=== PATIENT | male | born 1965 | race American Indian/Alaskan Native ===

== ENCOUNTER 2017-05-05 12:43 | Emergency (ER) | payer OTHER ==
--- NOTE | 2017-05-05 13:31 | Emergency Department Report ---
Stated Complaint: HBP Time Seen by Provider: 05/05/17 13:27 - HPI History of Present Illness: [facility] and [facility] was high. 168/123 and 174/126. PT states he was given clonidine but on recheck his bp increased to 183/127 PT states he has htn and he is on Norvasc and lisinopril. PT states he ordered his medication but he did not get it. PT states that why he went to clinic. PT states he last took his bp medication 7 days. - ROS Review of Systems: + headache + blurry vision - chest pain - Exam Physical Exam: Pt looks well, non toxic no focal weakness noted in triage gcs 15 MSE screening note: Focused history and physical exam performed. Due to findings the following was ordered: labs, ct, ekg ED Disposition for MSE Condition: Stable
[2017-05-05 14:02] LABS: Basophils % (Auto) 0.6 % (0.0-1.8); Eosinophils % (Auto) 2.1 % (0.0-4.3); Hematocrit 43.6 % (35.5-45.6); Hemoglobin 14.6 gm/dl (11.8-15.2); Mean Corpuscular HGB Conc 33 % (32-34); Mean Corpuscular Volume 76 fl (84-94); Platelet Count 270 K/mm3 (140-440); Red Blood Count 5.73 M/mm3 (3.65-5.03); Red Cell Distribution Width 15.7 % (13.2-15.2); White Blood Count 7.8 K/mm3 (4.5-11.0)
[2017-05-05 14:15] LABS: Mean Corpuscular Hemoglobin 25 pg (28-32)
[2017-05-05 14:20] LABS: Anion Gap 18 mmol/L; BUN/Creatinine Ratio 13.63; Blood Urea Nitrogen 15 mg/dL (9-20); Calcium 8.9 mg/dL (8.4-10.2); Carbon Dioxide 26 mmol/L (22-30); Chloride 100.2 mmol/L (98-107); Glucose 117 mg/dL (75-100); Potassium 3.9 mmol/L (3.6-5.0); Sodium 140 mmol/L (137-145)
--- NOTE | 2017-05-05 15:13 | Cat Scan Report ---
CRANIAL CT SCAN: History: Hypertension, blurred vision. Serial contiguous axial images were obtained through the cranium. Intravenous contrast material was not administered. The ventricles are normal in size and appearance. There is no mass effect or midline shift. No areas of abnormally increased or decreased attenuation are seen. No mass lesion is seen. The mastoid air cells and visualized portions of the sinuses are normal. IMPRESSION: Cranial CT scan within normal limits.
[2017-05-05] MEDS ORDERED: CATAPRES PO ONE (22:07)
--- NOTE | 2017-05-05 22:12 | Emergency Department Report ---
ED General Adult HPI - General Chief complaint: High BP Stated complaint: HBP Time Seen by Provider: 05/05/17 13:27 Source: patient Mode of arrival: Ambulatory Limitations: No Limitations - History of Present Illness Initial comments: 51 years old male sent from his doctor office because of high blood pressure patient received clonidine to his doctor office. Complaining of headache denied any focal weakness or numbness or tingling sensation. No nausea no vomiting no fever. Patient patient is out of his blood pressure medication for a week or so [facility] and [facility] but it will take time to come back. -: Gradual Location: head Radiation: non-radiation Severity scale (0 -10): 8 Consistency: constant - Related Data Previous Rx's Medication Instructions Recorded Last Taken Type HYDROcodone/APAP 5-325 [Sanders 1 each PO Q6HR PRN #14 tablet 07/09/14 Unknown Rx 5/325] Lisinopril/Hydrochlorothiazide 1 tab PO QDAY #30 tablet 07/09/14 Unknown Rx [Zestoretic 20-25 mg] amLODIPine [Norvasc] 10 mg PO DAILY #30 tab 07/09/14 Unknown Rx Lisinopril [Zestril TAB] 20 mg PO QDAY #30 tablet 05/06/17 Unknown Rx amLODIPine [Norvasc] 10 mg PO DAILY #30 tab 05/06/17 Unknown Rx Allergies Allergy/AdvReac Type Severity Reaction Status Date / Time No Known Allergies Allergy Unverified 07/09/14 10:44 ED Review of Systems ROS: Stated complaint: HBP Other details as noted in HPI Comment: All other systems reviewed and negative Constitutional: denies: chills, fever ENT: denies: ear pain, dental pain Respiratory: denies: cough, shortness of breath Cardiovascular: denies: chest pain Gastrointestinal: denies: abdominal pain, nausea, vomiting, diarrhea Neurological: headache. denies: weakness, numbness, paresthesias ED Past Medical Hx - Past Medical History Hx Hypertension: Yes (patient has not taken his medications for 2-3 weeks) - Surgical History Additional Surgical History: Left knee surgery - Social History Smoking Status: Never Smoker Substance Use Type: Alcohol - Medications Home Medications: Home Medications Medication Instructions Recorded Confirmed Last Taken Type HYDROcodone/APAP 5-325 [Sanders 1 each PO Q6HR PRN #14 tablet 07/09/14 Unknown Rx 5/325] Lisinopril/Hydrochlorothiazide 1 tab PO QDAY #30 tablet 07/09/14 Unknown Rx [Zestoretic 20-25 mg] amLODIPine [Norvasc] 10 mg PO DAILY #30 tab 07/09/14 Unknown Rx Lisinopril [Zestril TAB] 20 mg PO QDAY #30 tablet 05/06/17 Unknown Rx amLODIPine [Norvasc] 10 mg PO DAILY #30 tab 05/06/17 Unknown Rx ED Physical Exam - General Limitations: No Limitations General appearance: alert, in no apparent distress - Head Head exam: Present: atraumatic - Eye Eye exam: Present: normal appearance, PERRL Pupils: Present: normal accommodation - ENT ENT exam: Present: normal exam, normal orophraynx - Neck Neck exam: Present: normal inspection, full ROM. Absent: tenderness, meningismus, lymphadenopathy - Respiratory Respiratory exam: Present: normal lung sounds bilaterally. Absent: respiratory distress, wheezes, rales, rhonchi, stridor, chest wall tenderness, accessory muscle use, decreased breath sounds, prolonged expiratory - Cardiovascular Cardiovascular Exam: Present: regular rate, normal rhythm, normal heart sounds - GI/Abdominal GI/Abdominal exam: Present: soft. Absent: distended, tenderness, guarding, rebound, rigid, normal bowel sounds - Extremities Exam Extremities exam: Present: normal inspection, full ROM, normal capillary refill - Back Exam Back exam: Present: normal inspection, full ROM. Absent: tenderness, CVA tenderness (R), CVA tenderness (L) - Neurological Exam Neurological exam: Present: alert, oriented X3, CN II-XII intact - Skin Skin exam: Present: warm, intact ED Course Vital Signs 05/05/17 05/05/17 05/05/17 13:28 20:34 21:39 Temperature 97.9 F 98.7 F Pulse Rate 78 65 62 Respiratory 16 18 20 Rate Blood Pressure 160/118 211/140 170/115 O2 Sat by Pulse 95 95 Oximetry 05/05/17 05/05/17 22:03 23:50 Temperature 98 F Pulse Rate 62 59 L Respiratory 18 18 Rate Blood Pressure 171/160 153/104 O2 Sat by Pulse 97 Oximetry - Reevaluation(s) Reevaluation #1: 05/06/17 00:04 Reassessed patient stated that his headache is gone his blood pressure now is 150/101. Will discharge patient home with his prescription for Norvasc and lisinopril and to follow-up with his primary care physician for further evaluation. ED Medical Decision Making - Lab Data Result diagrams: 05/05/17 13:36 05/05/17 13:36 Critical care attestation.: If time is entered above; I have spent that time in minutes in the direct care of this critically ill patient, excluding procedure time. ED Disposition Clinical Impression: Headache, Hypertension Disposition: DC-01 TO HOME OR SELFCARE Is pt being admited?: No Does the pt Need Aspirin: No Condition: Stable Instructions: Hypertension (ED) Referrals: PRIMARY CARE, [Primary Care Provider] - 3-5 Days
[2017-05-05 23:55] VITALS: BP 153/104
== END 2017-05-06 01:05 | disposition home or self-care (01) ==
LOC: ED 12:43
DX: I10 Essential (primary) hypertension (principal)
CPT/HCPCS: 36415; 70450; 80048; 85025; 93005; 93010